=== PATIENT | female | born 1970 | race Caucasian/White ===

== ENCOUNTER 2024-05-21 11:41 | Inpatient (IN) | payer OTHER, SELFPAY ==
[2024-05-21 11:47] VITALS: BP 183/98; PULSE 95; RESP 20; TEMP 36.4; O2SAT 99; BMI 28.4
[2024-05-21 12:45] LABS: Acetaminophen LAB < 3 mcg/mL (<30); Salicylate < 5.0 mg/dL (15-30)
[2024-05-21 12:48] LABS: Alanine Aminotransferase 21 U/L (0-31); Albumin Level 4.7 g/dL (3.5-5.0); Alkaline Phosphatase 116 U/L (39-117); Anion Gap 11 (12-20); Aspartate Amino Transferase 23 U/L (5-31); Bilirubin Total 0.5 mg/dL (0.0-1.0); Blood Urea Nitrogen 7 mg/dL (9-16); Calcium 9.7 mg/dL (8.4-10.2); Carbon Dioxide 26 mmol/L (22-29); Chloride 106 mmol/L (96-108); Creatinine Clr Calc Pharmacy 103.6; Estimated Glomerular Filt Rate > 60; Ethanol < 10 mg/dL; Glucose Random 119 mg/dL (60-115); Magnesium 2.2 mg/dL (1.6-2.6); Potassium 4.2 mmol/L (3.3-5.1); Sodium 139 mmol/L (135-145); Total Protein 9.1 g/dL (6.5-8.0)
--- NOTE | 2024-05-21 13:09 | MHC.CARE ---
Pt meets the criteria for IPLOC secondary to endorsing SI and HI. Section 12a in chart. Provider in agreement.
[2024-05-21 13:36] LABS: Basophils Percent Auto 0.2 % (0-2); Eosinophils Percent Auto 0.1 % (0-4); Hematocrit 44.2 % (37.0-47.0); Hemoglobin 14.3 g/dl (12.0-16.0); Imm Gran Abs Auto 0.03 X10*3/uL (0.00-0.03); Imm Gran Pct Auto 0.4 % (0.0-0.4); Lymphocytes Absolute Auto 1.6 X10*3/uL (1.2-4.9); Lymphocytes Percent Auto 19.3 % (20-40); Mean Corpuscular HGB Conc 32.4 g/dl (31.0-35.0); Mean Corpuscular Hemoglobin 28.8 pg (27.0-33.0); Mean Corpuscular Volume 88.9 fL (80.0-98.0); Mean Platelet Volume 10.2 fL (9.4-12.3); Monocytes Absolute Auto 0.2 X10*3/uL (0.1-1.2); Monocytes Percent Auto 2.3 % (2-11); Neutrophils Absolute Auto 6.5 x10*3/uL (2.0-8.3); Neutrophils Percent Auto 77.7 % (45-73); Platelet Count 383 X10*3/uL (160-400); Red Blood Count 4.97 X10*6/uL (4.20-5.50); Red Cell Distribution Width 14.2 % (11.0-16.0); White Blood Count 8.4 X10*3/uL (4.8-10.8)
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
[2024-05-21 15:39] LABS: Appearance Urine Clear; Color Urine Yellow; Glucose Urine UA Negative (Negative); Leukocyte Esterase Urine Negative (Negative); Nitrite Urine Negative (Negative); PH 8.5 (5.0-9.0); Specific Gravity - Urine 1.015 (1.005-1.025); UMIC TRIGGER UACC YES; Urine Blood Negative (Negative); Urine Ketones Negative (Negative); Urine Protein 30 (1+) mg/dL (Neg-Trace)
[2024-05-21 15:49] LABS: Amphetamine Screen Urine Not Detected (Not Detect); Barbiturates, Urine Not Detected (Not Detect); Benzodiazepines Screen Urine Not Detected (Not Detect); Buprenorphine Scr Not Detected (Not Detect); Cannabinoid Screen Urine Not Detected (Not Detect); Cocaine Screen Urine Not Detected (Not Detect); Fentanyl, urine Not Detected (Not Detect); Methadone Screen, Urine Not Detected (Not Detect); Opiate Screen Urine Not Detected (Not Detect); Oxycodone Screen Urine Not Detected (Not Detect); Phencyclidine Screen Urine Not Detected (Not Detect)
[2024-05-21 15:51] LABS: Bacteria Urine Trace (None Seen); Hyaline Casts Urine 0-2 /LPF (0-2); RBC Urine 0-2 /HPF (0-2); Squamous Epithelial Cell Urine 0-2 /HPF (0-2); WBC Urine 0-5 /HPF (0-5)
[2024-05-21 16:00] VITALS: RESP 16
[2024-05-21] MEDS: LORazepam 1 MG TABLET 2 MG PO (16:41)
--- NOTE | 2024-05-21 16:47 | ECG_ITS ---
Test Reason : medical clearance Blood Pressure : */* mmHG Vent. Rate : 79 BPM Atrial Rate : 79 BPM P-R Int : 164 ms QRS Dur : 80 ms QT Int : 354 ms P-R-T Axes : 54 28 38 degrees QTcB Int : 405 ms Normal sinus rhythm Poor R wave progression Abnormal ECG No previous ECGs available Referred By: Angelica Awad Electronically Signed By: Wai Rodriguez
[2024-05-21 18:45] VITALS: BP 164/91; RESP 18; TEMP 37.2; O2SAT 97; BMI 27.7
[2024-05-21 19:45] VITALS: BP 144/97; PULSE 110; RESP 16; TEMP 37.1; O2SAT 97
[2024-05-22] MEDS: hydrOXYzine HCL 25 MG TABLET PO ×2 (05:35→15:19)
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
[2024-05-22 07:00] VITALS: BMI 28.0
[2024-05-22 08:00] VITALS: BP 110/68; PULSE 78; RESP 14; TEMP 36.8; O2SAT 97
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
[2024-05-22 09:49] LABS: Cholesterol 266 mg/dL (<200); HDL Cholesterol 53 mg/dL (>40); LDL Cholesterol Calculated 183 mg/dL (<100); Triglycerides 154 mg/dL (<150)
[2024-05-22 10:05] LABS: Free T4 (Free Thyroxine) 0.97 ng/dL (0.71-1.85); Thyroid Stimulating Hormone 1.26 uIU/mL (0.32-4.0)
[2024-05-22 10:16] LABS: Folate 5.6 ng/mL (> or = 4.0); Vitamin B12 326 pg/mL (200-900)
[2024-05-22 11:18] LABS: Estimated Average Glucose 120 mg/dL; Hemoglobin A1C 136.6594 umol/L; Hemoglobin A1c % 5.8 % (<6.0); Total Hemoglobin (HGBA1C) 3408.4834 umol/L
[2024-05-22] MEDS: Gabapentin 100 MG CAPSULE PO (13:53)
[2024-05-22] MEDS: Lithium Carbonate ER 300 MG TABLET.ER PO ×2 (13:53→20:36)
[2024-05-22 19:10] VITALS: BP 121/64; PULSE 82; RESP 16; TEMP 36.7; O2SAT 96
[2024-05-22] MEDS: traZODone HCL 50 MG TABLET PO (20:36)
[2024-05-22] MEDS: Sodium Chloride 0.65 % Nasal 44 ML SPRBTL 1 SPRAY NOSTRIL-B (20:55)
[2024-05-22 22:30] VITALS: BP 147/83; PULSE 75
[2024-05-22 22:36] VITALS: BP 144/92; PULSE 82
[2024-05-22 22:37] VITALS: BP 152/101; PULSE 93
[2024-05-22] MEDS: Acetaminophen 325 MG TABLET 650 MG PO (22:37)
--- NOTE | 2024-05-22 23:16 | PC.RT ---
pt refusing to wear cpap per nursing most likely will not wear it while she is here
[2024-05-23] MEDS: QUEtiapine Fumarate 100 MG TABLET PO (02:00)
[2024-05-23] MEDS: Gabapentin 100 MG CAPSULE PO (02:00)
[2024-05-23 07:52] VITALS: BP 111/61; PULSE 76; RESP 14; TEMP 36.8; O2SAT 95
[2024-05-23] MEDS: Lithium Carbonate ER 300 MG TABLET.ER PO ×2 (08:56→20:50)
[2024-05-23] MEDS: hydrOXYzine HCL 25 MG TABLET PO (13:29)
[2024-05-23] MEDS: Flu Vacc TS2024-25(6mos up)/PF 0.5 ML SYRINGE IM (14:09)
--- NOTE | 2024-05-23 14:43 | HO.PSYCHPN ---
Subjective Subjective Date of Service: 05/23/24 Reason For Visit: SI/HI Interim History: doing well. some poor sleep, attributable to seroquel's having been ordered for daily rather than HS yesterday. rectified. pt generally pleasant. does express desire to be home. discussed need to check lithium level prior to discharge. per staff, dep 3 anx 3. +meds. took traz and tyl PRNs last night. refused CPAP. elevated BPs. Mental Status Exam Mental Status Exam Narrative: adequately dressed and groomed. cooperative. no PMA/PMR. speech slightly slowed and decr amount, decr loudness. thoughts linear and logical, no delusions or paranoia noted. affect flexible, normo-intense, non-labile. mood not assessed. no SI/HI/AVH expressed. Diagnostics Vital Signs (24Hr): Vital Signs - 24 hr 05/22/24 19:10 05/22/24 22:30 05/22/24 22:36 Temperature 98.0 F Pulse Rate 82 75 82 Respiratory Rate 16 Blood Pressure 121/64 147/83 H 144/92 H Pulse Oximetry 96 Oxygen Delivery Method Room Air 05/22/24 22:37 05/23/24 07:52 Temperature 98.2 F Pulse Rate 93 76 Respiratory Rate 14 Blood Pressure 152/101 H 111/61 Pulse Oximetry 95 Oxygen Delivery Method Room Air BMI result Body Mass Index 28.0 Labs 05/21/24 13:28 05/21/24 12:11 Labs: Laboratory Results - last 48 hr 05/21/24 05/22/24 15:25 08:11 Estimat Average Glucose 120 Hemoglobin A1c % 5.8 Triglycerides 154 H Cholesterol 266 H LDL Cholesterol, Calc 183 H HDL Cholesterol 53 Vitamin B12 326 Folate 5.6 TSH 1.26 Free T4 0.97 Urine Color Yellow Urine Appearance Clear Urine pH 8.5 Ur Specific [place] 1.015 Urine Protein 30 (1+) H Urine Glucose (UA) Negative Urine Ketones Negative Urine Blood Negative Urine Nitrite Negative Ur Leukocyte Esterase Negative Urine RBC 0-2 Urine WBC 0-5 Ur Squamous Epith Cells 0-2 Urine Bacteria Trace Hyaline Casts 0-2 Urine Opiates Screen Not Detected Ur Buprenorphine Scrn Not Detected Ur Oxycodone Screen Not Detected Urine Methadone Screen Not Detected Urine Fentanyl Screen Not Detected Ur Barbiturates Screen Not Detected Ur Phencyclidine Scrn Not Detected Ur Amphetamines Screen Not Detected U Benzodiazepines Scrn Not Detected Urine Cocaine Screen Not Detected U Marijuana (THC) Screen Not Detected Medications Medications Current Medications Acetaminophen (Acetaminophen 325 Mg Tablet) 650 mg PO Q6H PRN PRN Reason: Headache/Pain Mild Scale (1-3) Last Admin: 05/22/24 22:37 Dose: 650 mg Al Hydroxide/Mg Hydroxide (Magnesium Hydrox/Alum Hydrox 30 Ml Oral.Susp) 30 ml PO Q6H PRN PRN Reason: Heartburn/Nausea Escitalopram Oxalate (Escitalopram Oxalate 10 Mg Tablet) 10 mg PO DAILY NINA Last Admin: 05/23/24 08:57 Dose: Not Given Gabapentin (Gabapentin 100 Mg Capsule) 100 mg PO TID PRN PRN Reason: Anxiety Last Admin: 05/23/24 02:00 Dose: 100 mg Hydroxyzine HCl (Hydroxyzine Hcl 25 Mg Tablet) 25 mg PO Q6H PRN PRN Reason: minor Anxiety Last Admin: 05/23/24 13:29 Dose: 25 mg [place] Carbonate ([place] Carbonate Er 300 Mg Tablet.Er) 300 mg PO BID [facility] Last Admin: 05/23/24 08:56 Dose: 300 mg Magnesium Hydroxide (Milk Of Magnesia 30 Ml Oral.Susp) 30 ml PO DAILY PRN PRN Reason: Constipation Nicotine Polacrilex (Nicotine Polacrilex 2 Mg Gum) 4 mg BUCCAL Q2H PRN PRN Reason: Nicotine Cravings Quetiapine Fumarate (Quetiapine Fumarate 100 Mg Tablet) 100 mg PO BEDTIME PRN PRN Reason: insomnia Last Admin: 05/23/24 02:00 Dose: 100 mg Quetiapine Fumarate (Quetiapine Fumarate 200 Mg Tablet) 200 mg PO BEDTIME NINA Sodium Chloride (Sodium Chloride 0.65 % Nasal 44 Ml Sprbtl) 1 spray NOSTRIL-B Q1H PRN PRN Reason: dry mucosae Last Admin: 05/22/24 20:55 Dose: 1 spray Allergies Allergies Allergy/AdvReac Type Severity Reaction Status Date / Time No Known Allergies Allergy Verified 05/21/24 11:51 [No Known Allergies*] Assessment & Plan Assessment & Plan (1) BISHOP (obstructive sleep apnea): Status: Acute Code(s): G47.33 - Obstructive sleep apnea (adult) (pediatric) (2) Bipolar I disorder: Status: Acute Code(s): F31.9 - Bipolar disorder, unspecified Plan 05/22: restart prior regimen, with some medications at reduced doses: lexapro 10 (was 20), gabapentin 100 TID PRN, lithium 300 BID, seroquel 200 QHS (was 400). 05/23: continue current mgmt. improved affect. Reason for continued inpatient stay Substantial Risk for: inability to function and rapid decompensation Time Spent With Patient Time: Total time managing care of this patient today _25___ minutes.
[2024-05-23 20:00] VITALS: BP 136/88; PULSE 84; RESP 16; TEMP 36.6; O2SAT 96
[2024-05-23] MEDS: QUEtiapine Fumarate 200 MG TABLET PO (20:51)
[2024-05-23] MEDS: Sodium Chloride 0.65 % Nasal 44 ML SPRBTL 1 SPRAY NOSTRIL-B (21:11)
[2024-05-24 07:20] VITALS: BP 130/83; PULSE 75; RESP 16; TEMP 36.6; O2SAT 96
--- NOTE | 2024-05-24 08:37 | HO.PSYCHPN ---
Subjective Subjective Date of Service: 05/24/24 Reason For Visit: SI/HI Subjective Notes: Conditional Voluntary Healthcare Proxy: No Guardianship: No Medical Problems Affecting Mental Status: No Interim History: 54 yo HF very talkative with peers- and on phone, refused am meds seroquel and lexapro- but she said was because she is feeling better= thinking pm meds helped- suggested she continue meds as rxed as she is feeling better and needs to continue to do so - she agrees as her daugther has told her same, she feels she has learned her lesson and will not go off them like she has in past- Medication Compliance: Intermittent Side effects from medications: No Attending Groups: Yes Review of Systems Acute medical concerns: No Medical Review of Systems: unchanged Mental Status Exam Mental Status Exam Narrative: dressed in her own clothes- pj looking Patient Appearance: Unkempt Patient Orientation: Person, Place and Situation Level of Consciousness: Awake Patient Behavior: Appropriate, Talkative and Cooperative Mood Description: Elated (?up) Affect Description: Expansive (mildly elavated) Patient Cognition Impaired: No Ability to Follow Directions: Fair Speech Pattern: Clear Thought Process: Intact Thought Content: positive for Racing Depressive Symptoms: Difficulty Concentrating Judgement: Fair Diagnostics Vital Signs (24Hr): Vital Signs - 24 hr 05/23/24 20:00 Temperature 98 F Pulse Rate 84 Respiratory Rate 16 Blood Pressure 136/88 Pulse Oximetry 96 Oxygen Delivery Method Room Air BMI result Body Mass Index 28.0 Labs 05/21/24 13:28 05/21/24 12:11 Labs: Laboratory Results - last 48 hr 05/22/24 08:11 Estimat Average Glucose 120 Hemoglobin A1c % 5.8 Triglycerides 154 H Cholesterol 266 H LDL Cholesterol, Calc 183 H HDL Cholesterol 53 Vitamin B12 326 Folate 5.6 TSH 1.26 Free T4 0.97 Medications Medications Current Medications Acetaminophen (Acetaminophen 325 Mg Tablet) 650 mg PO Q6H PRN PRN Reason: Headache/Pain Mild Scale (1-3) Last Admin: 05/22/24 22:37 Dose: 650 mg Al Hydroxide/Mg Hydroxide (Magnesium Hydrox/Alum Hydrox 30 Ml Oral.Susp) 30 ml PO Q6H PRN PRN Reason: Heartburn/Nausea Escitalopram Oxalate (Escitalopram Oxalate 10 Mg Tablet) 10 mg PO DAILY [facility] Last Admin: 05/23/24 08:57 Dose: Not Given Gabapentin (Gabapentin 100 Mg Capsule) 100 mg PO TID PRN PRN Reason: Anxiety Last Admin: 05/23/24 02:00 Dose: 100 mg Hydroxyzine HCl (Hydroxyzine Hcl 25 Mg Tablet) 25 mg PO Q6H PRN PRN Reason: minor Anxiety Last Admin: 05/23/24 13:29 Dose: 25 mg [place] Carbonate ([place] Carbonate Er 300 Mg Tablet.Er) 300 mg PO BID NINA Last Admin: 05/23/24 20:50 Dose: 300 mg Magnesium Hydroxide (Milk Of Magnesia 30 Ml Oral.Susp) 30 ml PO DAILY PRN PRN Reason: Constipation Nicotine Polacrilex (Nicotine Polacrilex 2 Mg Gum) 4 mg [place]CCAL Q2H PRN PRN Reason: Nicotine Cravings Quetiapine Fumarate (Quetiapine Fumarate 100 Mg Tablet) 100 mg PO BEDTIME PRN PRN Reason: insomnia Last Admin: 05/23/24 02:00 Dose: 100 mg Quetiapine Fumarate (Quetiapine Fumarate 200 Mg Tablet) 200 mg PO BEDTIME NINA Last Admin: 05/23/24 20:51 Dose: 200 mg Sodium Chloride (Sodium Chloride 0.65 % Nasal 44 Ml Sprbtl) 1 spray NOSTRIL-B Q1H PRN PRN Reason: dry mucosae Last Admin: 05/23/24 21:11 Dose: 1 spray Allergies Allergies Allergy/AdvReac Type Severity Reaction Status Date / Time No Known Allergies Allergy Verified 05/21/24 11:51 [No Known Allergies*] Assessment & Plan Assessment & Plan (1) BISHOP (obstructive sleep apnea): Status: Acute Code(s): G47.33 - Obstructive sleep apnea (adult) (pediatric) (2) Bipolar I disorder: Status: Acute Code(s): F31.9 - Bipolar disorder, unspecified Plan 05/22: restart prior regimen, with some medications at reduced doses: lexapro 10 (was 20), gabapentin 100 TID PRN, lithium 300 BID, seroquel 200 QHS (was 400). 05/23: continue current mgmt. improved affect. 05/24 wondering if lexapro further dec to 5mg, doing well on lithium and seroquel? Patient educated on: medication risk/benefits Informed Consent: further education needed Reason for continued inpatient stay Substantial Risk for: rapid decompensation Time Spent With Patient Time: Total time managing care of this patient today ____ minutes.
[2024-05-24] MEDS: Lithium Carbonate ER 300 MG TABLET.ER PO ×2 (09:01→20:16)
[2024-05-24] MEDS: hydrOXYzine HCL 25 MG TABLET PO (12:03)
[2024-05-24] MEDS: Acetaminophen 325 MG TABLET 650 MG PO (16:11)
[2024-05-24 20:00] VITALS: BP 164/86; PULSE 85; RESP 16; TEMP 37.2; O2SAT 98
[2024-05-24] MEDS: QUEtiapine Fumarate 200 MG TABLET PO (20:17)
[2024-05-24] MEDS: Sodium Chloride 0.65 % Nasal 44 ML SPRBTL 1 SPRAY NOSTRIL-B (20:20)
[2024-05-25 07:44] VITALS: BP 138/78; PULSE 75; RESP 16; TEMP 36.3; O2SAT 95
[2024-05-25] MEDS: Escitalopram Oxalate 10 MG TABLET PO (08:53)
[2024-05-25] MEDS: Lithium Carbonate ER 300 MG TABLET.ER PO ×2 (08:53→20:31)
[2024-05-25] MEDS: hydrOXYzine HCL 25 MG TABLET PO (10:15)
--- NOTE | 2024-05-25 11:54 | P.PNPSI_ITS ---
Subjective Subjective Date of Service: 05/25/24 Reason For Visit: SI/HI Subjective Notes: Conditional Voluntary Healthcare Proxy: No Guardianship: No Medical Problems Affecting Mental Status: No Interim History: 54 yo HF presents doing ok - feels better- looking to get discharged- feels Seroquel at night really helps- pt refused am meds but suggested we taper off lexapro instead- Appears engaged in mileu, slight hyper edge- but no irritability Medication Compliance: Yes Side effects from medications: No Attending Groups: Yes Review of Systems Acute medical concerns: No Review of Systems: co nasal congestiong requesting different delivery of nasal spray? Mental Status Exam Mental Status Exam Patient Appearance: Unkempt Patient Orientation: Person, Place, Time and Situation Level of Consciousness: Awake Patient Behavior: Appropriate and Good Eye Contact Mood Description: Calm and Elated (mild up) Affect Description: Cheerful Patient Cognition Impaired: No Ability to Follow Directions: Fair Speech Pattern: Clear Hallucinations: None Delusions: Not Present Thought Content: positive for Intact and positive for Goal Oriented Judgement: Fair Diagnostics Vital Signs (24Hr): Vital Signs - 24 hr 05/24/24 20:00 05/25/24 07:44 Temperature 98.9 F 97.3 F Pulse Rate 85 75 Respiratory Rate 16 16 Blood Pressure 164/86 H 138/78 Pulse Oximetry 98 95 Oxygen Delivery Method Room Air Room Air BMI result Body Mass Index 28.0 Labs 05/21/24 13:28 05/21/24 12:11 Medications Medications Current Medications Acetaminophen (Acetaminophen 325 Mg Tablet) 650 mg PO Q6H PRN PRN Reason: Headache/Pain Mild Scale (1-3) Last Admin: 05/24/24 16:11 Dose: 650 mg Al Hydroxide/Mg Hydroxide (Magnesium Hydrox/Alum Hydrox 30 Ml Oral.Susp) 30 ml PO Q6H PRN PRN Reason: Heartburn/Nausea Escitalopram Oxalate (Escitalopram Oxalate 5 Mg Tablet) 5 mg PO DAILY NINA Gabapentin (Gabapentin 100 Mg Capsule) 100 mg PO TID PRN PRN Reason: Anxiety Last Admin: 05/23/24 02:00 Dose: 100 mg Hydroxyzine HCl (Hydroxyzine Hcl 25 Mg Tablet) 25 mg PO Q6H PRN PRN Reason: minor Anxiety Last Admin: 05/25/24 10:15 Dose: 25 mg [place] Carbonate ([place] Carbonate Er 300 Mg Tablet.Er) 300 mg PO BID NINA Last Admin: 05/25/24 08:53 Dose: 300 mg Magnesium Hydroxide (Milk Of Magnesia 30 Ml Oral.Susp) 30 ml PO DAILY PRN PRN Reason: Constipation Nicotine Polacrilex (Nicotine Polacrilex 2 Mg Gum) 4 mg [place] Q2H PRN PRN Reason: Nicotine Cravings Quetiapine Fumarate (Quetiapine Fumarate 100 Mg Tablet) 100 mg PO BEDTIME PRN PRN Reason: insomnia Last Admin: 05/23/24 02:00 Dose: 100 mg Quetiapine Fumarate (Quetiapine Fumarate 200 Mg Tablet) 200 mg PO BEDTIME NINA Last Admin: 05/24/24 20:17 Dose: 200 mg Sodium Chloride (Sodium Chloride 0.65 % Nasal 44 Ml Sprbtl) 1 spray NOSTRIL-B Q1H PRN PRN Reason: dry mucosae Last Admin: 05/24/24 20:20 Dose: 1 spray Allergies Allergies Allergy/AdvReac Type Severity Reaction Status Date / Time No Known Allergies Allergy Verified 05/21/24 11:51 [No Known Allergies*] Assessment & Plan Assessment & Plan (1) BISHOP (obstructive sleep apnea): Status: Acute Code(s): G47.33 - Obstructive sleep apnea (adult) (pediatric) (2) Bipolar I disorder: Status: Acute Code(s): F31.9 - Bipolar disorder, unspecified Plan 05/22: restart prior regimen, with some medications at reduced doses: lexapro 10 (was 20), gabapentin 100 TID PRN, lithium 300 BID, seroquel 200 QHS (was 400). 05/23: continue current mgmt. improved affect. 05/24 wondering if lexapro further dec to 5mg, doing well on lithium and seroquel? 05/25 feeling better looking for dc planning- taper off lexapro Patient educated on: medication risk/benefits Informed Consent: understands Reason for continued inpatient stay Substantial Risk for: rapid decompensation Time Spent With Patient Time: Total time managing care of this patient today ____ minutes.
[2024-05-25 19:45] VITALS: BP 148/95; PULSE 85; RESP 18; TEMP 36.6; O2SAT 96
[2024-05-25] MEDS: Gabapentin 100 MG CAPSULE PO (20:31)
[2024-05-25] MEDS: QUEtiapine Fumarate 200 MG TABLET PO (20:31)
[2024-05-25] MEDS: Sodium Chloride 0.65 % Nasal 44 ML SPRBTL 1 SPRAY NOSTRIL-B (21:26)
[2024-05-25 21:50] VITALS: BP 106/59; PULSE 81; RESP 18; TEMP 36.7; O2SAT 95
[2024-05-26 07:46] VITALS: BP 128/71; PULSE 79; RESP 16; TEMP 36.4; O2SAT 97
[2024-05-26] MEDS: Escitalopram Oxalate 5 MG TABLET PO (08:34)
[2024-05-26] MEDS: Lithium Carbonate ER 300 MG TABLET.ER PO ×2 (08:34→20:30)
[2024-05-26] MEDS: Gabapentin 100 MG CAPSULE PO (12:37)
--- NOTE | 2024-05-26 13:34 | P.PNPSI_ITS ---
Subjective Subjective Date of Service: 05/26/24 Reason For Visit: SI/HI Interim History: calm, cooperative, pleasant. reports her mood is good, that she is sleeping well. some anxiety last night. would like to go home soon. per staff, refusing CPAP. taking meds and meals. pleasant. anxiety. slept well. Mental Status Exam Mental Status Exam Narrative: adequately dressed and groomed. cooperative. no PMA/PMR. speech slightly slowed and decr amount, nml loudness. thoughts linear and logical, no delusions or paranoia noted. affect flexible, normo-intense, non-labile. mood good. no SI/HI/AVH expressed. Diagnostics Vital Signs (24Hr): Vital Signs - 24 hr 05/25/24 19:45 05/25/24 21:50 05/26/24 07:46 Temperature 97.8 F 98.0 F 97.6 F Pulse Rate 85 81 79 Respiratory Rate 18 18 16 Blood Pressure 148/95 H 106/59 L 128/71 Pulse Oximetry 96 95 97 Oxygen Delivery Method Room Air Room Air Room Air BMI result Body Mass Index 28.0 Labs 05/21/24 13:28 05/21/24 12:11 Labs: Laboratory Results - last 48 hr 05/22/24 08:11 Estimat Average Glucose 120 Hemoglobin A1c % 5.8 Triglycerides 154 H Cholesterol 266 H LDL Cholesterol, Calc 183 H HDL Cholesterol 53 Vitamin B12 326 Folate 5.6 TSH 1.26 Free T4 0.97 Medications Medications Current Medications Acetaminophen (Acetaminophen 325 Mg Tablet) 650 mg PO Q6H PRN PRN Reason: Headache/Pain Mild Scale (1-3) Last Admin: 05/24/24 16:11 Dose: 650 mg Al Hydroxide/Mg Hydroxide (Magnesium Hydrox/Alum Hydrox 30 Ml Oral.Susp) 30 ml PO Q6H PRN PRN Reason: Heartburn/Nausea Escitalopram Oxalate (Escitalopram Oxalate 5 Mg Tablet) 5 mg PO DAILY [facility] Last Admin: 05/26/24 08:34 Dose: 5 mg Gabapentin (Gabapentin 100 Mg Capsule) 100 mg PO TID PRN PRN Reason: Anxiety Last Admin: 05/26/24 12:37 Dose: 100 mg [place] Carbonate ([place] Carbonate Er 300 Mg Tablet.Er) 300 mg PO BID [facility] Last Admin: 05/26/24 08:34 Dose: 300 mg Magnesium Hydroxide (Milk Of Magnesia 30 Ml Oral.Susp) 30 ml PO DAILY PRN PRN Reason: Constipation Nicotine Polacrilex (Nicotine Polacrilex 2 Mg Gum) 4 mg BUCCAL Q2H PRN PRN Reason: Nicotine Cravings Quetiapine Fumarate (Quetiapine Fumarate 100 Mg Tablet) 100 mg PO BEDTIME PRN PRN Reason: insomnia Last Admin: 05/23/24 02:00 Dose: 100 mg Quetiapine Fumarate (Quetiapine Fumarate 200 Mg Tablet) 200 mg PO BEDTIME NINA Last Admin: 05/25/24 20:31 Dose: 200 mg Sodium Chloride (Sodium Chloride 0.65 % Nasal 44 Ml Sprbtl) 1 spray NOSTRIL-B Q1H PRN PRN Reason: dry mucosae Last Admin: 05/25/24 21:26 Dose: 1 spray Allergies Allergies Allergy/AdvReac Type Severity Reaction Status Date / Time No Known Allergies Allergy Verified 05/21/24 11:51 [No Known Allergies*] Assessment & Plan Assessment & Plan (1) BISHOP (obstructive sleep apnea): Status: Acute Code(s): G47.33 - Obstructive sleep apnea (adult) (pediatric) (2) Bipolar I disorder: Status: Acute Code(s): F31.9 - Bipolar disorder, unspecified Plan 05/22: restart prior regimen, with some medications at reduced doses: lexapro 10 (was 20), gabapentin 100 TID PRN, lithium 300 BID, seroquel 200 QHS (was 400). 05/23: continue current mgmt. improved affect. 05/24 wondering if lexapro further dec to 5mg, doing well on lithium and seroquel? 05/25 feeling better looking for dc planning- taper off lexapro 05/26: feeling well. asking to DC soon. agreeable to check lithium level tonight and adjust accordingly tomorrow. Reason for continued inpatient stay Substantial Risk for: inability to function and rapid decompensation Time Spent With Patient Time: Total time managing care of this patient today __25__ minutes.
[2024-05-26 20:00] VITALS: BP 156/90; PULSE 78; RESP 18; TEMP 36.8; O2SAT 97
[2024-05-26] MEDS: QUEtiapine Fumarate 200 MG TABLET PO (20:30)
[2024-05-26 20:35] LABS: Lithium 0.32 mmol/L (0.60-1.20)
[2024-05-26 20:42] LABS: Anion Gap 14 (12-20); Blood Urea Nitrogen 12 mg/dL (9-16); Calcium 9.6 mg/dL (8.4-10.2); Carbon Dioxide 24 mmol/L (22-29); Chloride 108 mmol/L (96-108); Creatinine Clr Calc Pharmacy 91.4; Estimated Glomerular Filt Rate > 60; Glucose Random 105 mg/dL (60-115); Potassium 4.8 mmol/L (3.3-5.1); Sodium 141 mmol/L (135-145)
[2024-05-27 07:30] VITALS: BP 129/82; PULSE 75; RESP 16; TEMP 36.7; O2SAT 97
[2024-05-27] MEDS: Escitalopram Oxalate 5 MG TABLET PO (08:33)
[2024-05-27] MEDS: Lithium Carbonate ER 300 MG TABLET.ER PO (08:33)
[2024-05-27] MEDS: Gabapentin 100 MG CAPSULE PO (10:40)
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
== END 2024-05-27 11:42 | disposition home or self-care (01) | DRG 885 ==
LOC: HO.ED 15:02 → HO.PADLT16 18:04
PROVIDERS: Physician Assistant Medical; Admitting Provider Psychiatry & Neurology Psychiatry; Emergency Provider Emergency Medicine; PCP Internal Medicine; Visit Provider Psychiatry & Neurology Psychiatry
DX: F31.9 Bipolar disorder, unspecified (principal); R45.851 Suicidal ideations; G47.33 Obstructive sleep apnea (adult) (pediatric); Z23 Encounter for immunization; Z79.899 Other long term (current) drug therapy
CPT/HCPCS: 36415; 80048; 80053; 80061; 80143; 80178; 80179; 80307; 81001; 82607; 82746; 83036; 83735; 84439; 84443; 85025; 90656; 93005; 99285; S9485

== ENCOUNTER → 2024-05-21 16:47 | Outpatient (BNV) | DX: R94.31 Abnormal electrocardiogram [ECG] [EKG] (principal) | CPT/HCPCS: 93010 ==

== ENCOUNTER → 2024-05-21 17:57 | Outpatient (BNV) | payer OTHER, SELFPAY | PROVIDERS: Admitting Provider Psychiatry & Neurology Psychiatry; Emergency Provider Emergency Medicine; PCP Internal Medicine; Visit Provider Psychiatry & Neurology Psychiatry | DX: F31.4 Bipolar disorder, current episode depressed, severe, without psychotic features (principal); G47.33 Obstructive sleep apnea (adult) (pediatric) | CPT/HCPCS: 90792; 99231; 99232 ==